=== PATIENT | female | born 1980 | race Caucasian/White ===

== ENCOUNTER 2016-03-28 08:39 | Emergency (ER) | payer OTHER ==
[~2016-03-28] VITALS: Ht 160 cm; Wt 127.0 kg
[~2016-03-28 08:39] MED LIST: DIABETA5 MG PO; DOCULAX PO; GLYBURIDE 5MG TA5 MG PO; GLYCERIN SUPPOS1 SU3 RC; IRON TABLETS325 MG PO; MILK OF MA400 MG/5 M PO; MYLICON PO; NAPROSYN 500MG500 MG PO; PERCOCET 5/3251 EACH PO; PRENATAL PLUS1 TA1 PO; ZANTAC 150150 MG PO; ZYRTEC 10MG TAB10 MG PO
--- NOTE | 2016-03-28 08:50 | Emergency Room Report ---
History of Present Illness Time Seen by MD Bennett Presenting Problem in Triage Pt arrived:Walked Presenting Problem:PT PRESENTS WITH ONSET OF ACUTE OF ABD PAIN THAT IS LOCATED CENTRALLY IN HER ABD; PT STATES RADIATES FROM UMBILICUS TO PUBIC AREA Onset of symptoms date/time:/ or onset unknown for:MEDICAL HX UNKNOWN Treatment Prior to Arrival: NOTHING NEEDED; NPO SINCE LAST NIGHT AT [address] [employer] Provided by:SELF Sepsis Risk Assessment: Temp: 97.9 B/P: 134/111 MAP: 118 Pulse: 102 Resp: 18 Recent fever? N Clinical Suspician of Infection? N Mental Status: 1 - Regular (Normal Baseline) Sepsis Risk:Low Sepsis Risk Have you (or family members/close friends) recently traveled outside the [place]? N If Yes, where/when: Have you had exposure to infectious disease within the past month? TB? Other? Specify: Source patient, RN notes reviewed, family Exam Limitations no limitations Comment This is a 36-year-old female with no significant past medical history who presents to the emergency department for perimbilical abdominal pain that is crampy in nature. Pain occurred first 5 days ago and was associated with nausea. Pain spontaneously resolved within a few hours. She has been having regular bowel movements and does not normally struggle with constipation. She has not had any fevers, diarrhea. No chest pain or shortness of air. No history of structural heart disease. She does not have a history of any abdominal surgeries except for cholecystectomy. She had another episode of pain this morning and so presents to the emergency department for evaluation. When the pain initially hit it is acute and sudden, 10/10 in intensity and radiates towards the suprapubic region. Currently her pain is much duller and is beginning to resolve. She denies any dysuria, hematuria. No abnormal vaginal discharge. She is in a monogamous relationship. LMP 3 weeks ago. She is a smoker. ALLERGIES Coded Allergies: ibuprofen (Mild, 03/28/16) meloxicam (From MOBIC) (Mild, 03/28/16) ranitidine (Mild, 03/28/16) Home Medications Reported Medications Glycerin (Adult Glycerin) 1 SUP RC PRN PRN CONSTIPATION Magnesium Hydroxide (Milk Of Magnesia) 400 MG PO PRN PRN STOMACH Simethicone (Mylicon 40MG/0.6ML Drops; 30ML) 40 MG PO PRN PRN GAS Ranitidine Hcl (Zantac) 150 MG PO BID Cetirizine Hcl (All Day Allergy) 10 MG PO DAILY History Medical History General Angina: No [place]: No Hypertension? No Hyperlipidemia? No CHF? No COPD? No Asthma? No Hernia? No CVA? No Seizures? No Diabetes? No End Stage Renal Disease? No UTI? No Stones? No GB Disease: Yes Nephritic Syndrome? No Asplenia? No Hepatitis? No Sickle Cell Disease? No Cataracts? No Glaucoma? No MRSA? No TB? No Cancer? No Immunization Hx Ped.Immunizations UTD Yes DT/Tetanus 5-10 Years Ago Flu [place]CD IN [place] Pneumonia Never Had Surgical Hx Previous Surgery?Y TONSILS/WISDOM TEETH 1993 GALLBLADDER [employer] Hx LMP N/A Family History Family Hx Diabetes Yes CAD Yes Hypertension Yes Hyperlipidemia Yes Cancer Yes TB No Social History Smoking Hx Smoker: Current Every Day Smoker Tobacco: Yes Type Cigarettes Packs/day < 1 Pack Alcohol Alcohol: No Review of Systems All Other Systems Reviewed and Negative Physical Exam Vital Signs Vital Signs Date Time Temp Pulse Resp B/P Pulse O2 O2 Flow FiO2 Ox Delivery Rate 03/28 1036 92 18 105/75 100 03/28 0914 103 18 140/91 98 03/28 0842 97.9 102 18 134/111 98 General Appearance normal appearance, WD/WN Neck normal inspection, non-tender, supple, full range of motion Respiratory Status Yes: chest symmetrical, non tender chest. No: respiratory distress. Lung Sounds bilateral: normal breath sounds, lungs clear. Cardiovascular normal exam, regular rate/rhythm, no peripheral edema, no gallop, no JVD, no murmur, no rub, normal peripheral pulses Peripheral Pulses Pulses normal Yes Gastrointestinal normal bowel sounds, normal exam, non tender Back normal inspection, no CVA tenderness, no vertebral tenderness Extremities non-tender, normal range of motion, normal inspection Neurologic alert, no motor/sensory deficits, oriented x 3 Skin intact, normal color, warm/dry Medical Decision Making LABS/Meds/Orders Pt receiving controlled substance in ED? No Results/Orders Laboratory Tests 03/28/16 0918: Urine Color YELLOW, Urine Appearance CLOUDY, Urine pH 6.0, Ur Specific [place] 1.025, Urine Protein NEGATIVE, Urine Ketones NEGATIVE, Urine Blood 2+ H, Urine Nitrate NEGATIVE, Urine Bilirubin NEGATIVE, Urine Urobilinogen 0.2, Ur Leukocyte Esterase NEGATIVE, Urine RBC 3-5, Urine WBC 3-5, Ur Squamous Epith Cells OCC, Urine Bacteria 3+, Urine Glucose NEGATIVE 03/28/16 0912: Sodium 138, Potassium 4.3, Chloride 103, Carbon Dioxide 27, BUN 11, Creatinine 0.8, Estimated Creat Clear 199, Estimated GFR (MDRD) 82, Glucose 131 H, Calcium 8.9, Total Bilirubin 0.2, AST 8 L, ALT 18, Alkaline Phosphatase 79, Total Protein 7.6, Albumin 2.9 L, Globulin 4.7 H, Albumin/Globulin Ratio 0.6 L, Lipase 102, WBC 10.1, RBC 4.75, Hgb 13.2, Hct 41.2, MCV 86.7, RDW 14.7, Plt Count 280, MPV 8.5, Gran % 71.4, Gran # 7.2, Lymphocytes % 23.2, Monocytes % 3.5 , Eosinophils % 1.6, Basophils % 0.4, Lymphocytes # 2.3, Monocytes # 0.4, Eosinophils # 0.2, Basophils # 0.0, PUBS MCHC 32.1, MCH 27.8 Current Medication Orders Sig/Katelyn Start time Last Medication Dose Route Stop Time Status Admin Nitrofurantoin 100 MG ONCE ONE 03/28 1100 DC PO 03/28 1101 Iopamidol 75 ML ONCE ONE 03/28 1030 DC 03/28 IV 03/28 1031 1029 Sodium Chloride 10 ML PRN PRN 03/28 1030 AC 03/28 IV 03/28 1158 1029 Sodium Chloride 10 ML PRN PRN 03/28 0900 AC IV 03/29 0852 Orders Procedure Date/time Status DIET-NOTHING BY MOUTH 03/[address] ABD/PELVIS REQ 03/28 0942 Complete CULTURE, URINE 03/28 0918 Active IV SALINE LOCK 03/28 0852 Active LIPASE 03/28 0852 Complete CBC WITH AUTO DIFF 03/28 0852 Complete CHEM 12 PROFILE 03/28 0852 Complete URINALYSIS/COMPLETE 03/28 0847 Complete URINE 03/28 0847 Complete CM/EKG CM/EKG EKG rate (76), NSR, no evid. of ischemic chgs, normal QRS, normal HI Departure Departure Disposition DC Home or Self Care(routine) Clinical Impression Primary Impression: UTI (urinary tract infection) Qualifiers: Urinary tract infection type: acute cystitis Hematuria presence: with hematuria Qualified Code: N30.01 - Acute cystitis with hematuria Condition STABLE Referrals Zeke Mayfield MD (Family) Additional Instructions Take antibiotics until complete. Follow-up with your primary care provider if symptoms are not improving over the next 2-3 days. Return to the emergency department if you develop any acute worsening of symptoms, change in the quality of your pain, fever. Prescriptions Current Visit Scripts NITROFURANTOIN MACROCRYSTAL (Macrodantin 100MG) 100 MG PO BID #14 CAP ED Critical Care Critical Care No Comments Patient here with UTI on laboratory evaluation. Cranium within normal limits. No fever or leukocytosis or flank pain to suggest pyelonephritis. CT scan of the abdomen/pelvis does not show any signs of obstruction, appendicitis. Lipase is within normal limits. Patient given first dose of antibiotics here and discharged home with return precautions and follow-up instructions. at 1102
[2016-03-28 09:19] LABS: HEMOGLOBIN 13.2 g/dL (12.2-16.2); LYMPH # 2.3 K/mm3 (0.7-4.5); LYMPH % 23.2 % (10-50.0)
[2016-03-28 09:25] LABS: URINE BILIRUBIN - DIPSTICK NEGATIVE (NEG); URINE BLOOD 2+ (NEG)
[2016-03-28 09:37] LABS: URINE SQUAMOUS CELLS OCC #/hpf (0-5)
--- NOTE | 2016-03-28 10:53 | RADIOLOGY REPORT PS360 ---
CT ABD PELVIS W/ CONTRAST CLINICAL INDICATION: MOSES UMBILLICAL PAIN ORDERING PHYSICIAN: Philippe Dent MD PATIENT AGE: 36 years COMPARISON: None TECHNIQUE: Axial images obtained with sagittal and coronal reformats. PROCEDURE: Oral Contrast: None IV Contrast: 75 mL of Isovue-370 . FINDINGS: Lung bases are clear. There is diffuse hepatic steatosis. No focal liver lesion. Prior cholecystectomy without biliary dilatation. Spleen, adrenal glands, and pancreas are unremarkable. No hydronephrosis or obstructing ureteral calculus. Unremarkable appendix. No evidence of diverticulitis. No intestinal obstruction or free air evident. There is some lobulation of the uterus on the right which is nonspecific. There may be small bilateral ovarian cysts. No significant cul-de-sac fluid. No acute bony anomalies. IMPRESSION: 1. No acute intra-abdominal or pelvic pathology. 2. Unremarkable appendix. No obstructing ureteral calculi. 3. Nonacute findings as described above
[2016-03-28] MEDS ORDERED: MACRODANTIN100 MG PO (11:01)
[2016-03-28 11:11] VITALS: BP 105/75
== END 2016-03-28 11:11 | disposition home or self-care (01) ==
LOC: ER 08:39
PROVIDERS: Emergency Medicine
DX: N30.01 Acute cystitis with hematuria (principal); Z72.0 Tobacco use
CPT/HCPCS: Q9967

== ENCOUNTER 2016-06-27 17:26 | Emergency (ER) | payer OTHER ==
[~2016-06-27] VITALS: Ht 160 cm; Wt 122.5 kg
[~2016-06-27 17:26] MED LIST changes: +MACRODANTIN100 MG PO
--- NOTE | 2016-06-27 18:18 | Urgent Treatment Center Report ---
History of Present Issue Date/Time Seen by Provider 06/27/161818 Visit Reason Pt arrived:Walked Presenting Problem:PT REPORTS POSSIBLE ALLERGIC REACTION TO SOMETHING THAT HAS CAUSED HER FACE TO SWELL. PT ADVISES THAT SHE HAS BEEN TAKING BENADRYL FOR 2 DAYS AND IT HAS NOT HELPED Location if Accident: Onset of symptoms date/time:/ or onset unknown for:MEDICAL HX UNKNOWN Have you (or family members/close friends) recently traveled outside the [place]? N If Yes, where/when: Have you had exposure to infectious disease within the past month? TB? Other? Specify: Patient states that she was out eating the other night and felt like something may have bitten her on the back. States that she then began having rash and hives all over States that she took some benadryl and it helped a little states that she came in because she knew she may have needed steriods ALLERGIES Coded Allergies: ibuprofen (Mild, 03/28/16) meloxicam (From MOBIC) (Mild, 03/28/16) ranitidine (Mild, 03/28/16) Home Medications Active Scripts NITROFURANTOIN MACROCRYSTAL (Macrodantin 100MG) 100 MG PO BID #14 CAP Prov: 03/28/16 Reported Medications Glycerin (Adult Glycerin) 1 SUP RC PRN PRN CONSTIPATION Magnesium Hydroxide (Milk Of Magnesia) 400 MG PO PRN PRN STOMACH Simethicone (Mylicon 40MG/0.6ML Drops; 30ML) 40 MG PO PRN PRN GAS Ranitidine Hcl (Zantac) 150 MG PO BID Cetirizine Hcl (All Day Allergy) 10 MG PO DAILY History Medical History General CAD? No Angina: No [place]: No Hypertension? No Hyperlipidemia? No CHF? No DVT? No PE? No COPD? No Asthma? No Anemia? No GERD? No Gastric ulcers? No GI Bleed? No Hernia? No Thyroid Problems? No Hypothyroidism? No CVA? No Seizures? No Diabetes? No Renal Insuffiency? No UTI? No Stones? No BPH? No GB Disease: Yes Nephritic Syndrome? No Asplenia? No Hepatitis? No Sickle Cell Disease? No Arthritis? No Migraines? No Cataracts? No Glaucoma? No MRSA? No HIV? No TB? No Anxiety? No Depression? No Cancer? No More? No Immunization HX DT/Tetanus 5-10 Years Ago Flu RECD IN [place] Pneumonia Never Had Surgical Hx Previous Surgery?Y TONSILS/WISDOM TEETH 1993 GALLBLADDER Family History Family HX Diabetes Yes CAD Yes Hypertension Yes Hyperlipidemia Yes Cancer Yes TB No Social History Smoking Hx Smoker: Current Every Day Smoker Tobacco: Yes Type Cigarettes Packs/day < 1 Pack Alcohol Alcohol: No Review of Systems All Other Systems Reviewed and Negative Skin rash, other Comment Rash and hives on back, arms, face and extremeties Physical Exam Vital Signs Vital Signs Date Time Temp Pulse Resp B/P Pulse O2 O2 Flow FiO2 Ox Delivery Rate 06/27 1755 98.3 94 18 150/88 96 General Appearance normal appearance, WD/WN, no apparent distress Respiratory Status Yes: trachea midline, chest symmetrical. No: respiratory distress. Lung Sounds bilateral: normal breath sounds, lungs clear. Cardiovascular normal exam, regular rate/rhythm Neurologic alert, site promotion agent II-XII nml as tested, normal exam, no motor/sensory deficits, oriented x 3 Skin hives, rash, allergic urticaria, lips slightly swollen, redness Comments Patient has redness on her checks and slight swelling to her lips, allergic urticaria noted on arms, legs, back and face Medical Decision Making LABS/Meds/Orders Pt receiving controlled substance in ED? No Results/Orders Current Medication Orders Sig/Katelyn Start time Last Medication Dose Route Stop Time Status Admin Methylprednisolone 125 MG ONCE ONE 06/27 1814 DC 06/27 Sodium Succinate IM 06/28 1815 1818 Methylprednisolone 0 .STK-MED ONE 06/27 180 DC Sodium Succinate .ROUTE Departure Departure Disposition DC Home or Self Care(routine) Clinical Impression Primary Impression: Allergic reaction Qualifiers: Encounter type: initial encounter Qualified Code: T78.40XA - Allergy, unspecified, initial encounter Condition STABLE Referrals Zeke Mayfield MD (Family): 2 Days-Call Office if no improvement Patient Instructions DI for General Allergic Reactions Additional Instructions Take medication as prescribed Follow up with family doctor REturn if needed Discharge Counseling Counseled pt/family regarding diagnosis, home care, follow up needs Prescriptions Current Visit Scripts Methylprednisolone (Medrol Dose Vinny) 4 MG PO UD #1 VINNY TAKE DIRECTED ON PACKAGING Diphenhydramine Hcl (Benadryl 50MG Cap) 50 MG PO Q6H PRN #30 CAP at 1854
[2016-06-27] MEDS ORDERED: BENADRYL 50MG C50 MG PO (18:27)
[2016-06-27] MEDS ORDERED: MEDROL 4MG. DOSE4 MG PO (18:27)
--- OUTSIDE RECORDS SUMMARY | 2016-06-27 18:27 | External Medical Summary Rpt ---
Author Author , Organization [employer] Address Unknown Phone Unavailable Purpose Continuity of Care Document - through 2016
--- OUTSIDE RECORDS SUMMARY | 2016-06-27 18:28 | External Medical Summary Rpt ---
Demographics Preferred Language Albanian Marital Status Unknown Cheondoism Affiliation Unknown Race Unknown Ethnic Group Unknown Author Author , Organization [employer] Address Unknown Phone Unavailable Purpose Continuity of Care Document - through 2016 Immunization No patient found.
--- OUTSIDE RECORDS SUMMARY | 2016-06-27 18:28 | External Medical Summary Rpt ---
Author Author [employer] Organization [employer] Address Unknown Phone Unavailable Purpose Continuity of Care Document - through 2016
--- OUTSIDE RECORDS SUMMARY | 2016-06-27 18:28 | External Medical Summary Rpt ---
Author Author JOV[employer] Barboza, JOVANI Barboza Organization [employer] Address Unknown Phone Unavailable
--- OUTSIDE RECORDS SUMMARY | 2016-06-27 18:28 | External Medical Summary Rpt ---
Demographics Preferred Language Ugandan Marital Status Unknown Episcopalian Affiliation Unknown Race Unknown Ethnic Group Unknown Author Author , Organization [employer] Address Unknown Phone Unavailable Purpose Continuity of Care Document - through 2016 Immunization No patient found.
--- OUTSIDE RECORDS SUMMARY | 2016-06-27 18:28 | External Medical Summary Rpt ---
Demographics Preferred Language Sierra Leonean Marital Status Unknown Buddhism Affiliation Unknown Race Unknown Ethnic Group Unknown Author Author , Organization [employer] Address Unknown Phone Unavailable Purpose Continuity of Care Document - through 2016 Immunization No patient found.
--- OUTSIDE RECORDS SUMMARY | 2016-06-27 18:28 | External Medical Summary Rpt ---
Demographics Preferred Language Slovak Marital Status Unknown Latter-Day Affiliation Unknown Race Unknown Ethnic Group Unknown Author Author , Organization [employer] Address Unknown Phone Unavailable Purpose Continuity of Care Document - through 2016 Immunization No patient found.
[2016-06-27 19:02] VITALS: BP 150/88
== END 2016-06-27 19:02 | disposition home or self-care (01) ==
LOC: UTC 17:26
DX: T78.40XA Allergy, unspecified, initial encounter (principal); Z72.0 Tobacco use